=== PATIENT | female | born 1955 | race Hispanic/Latino ===

== ENCOUNTER 2018-05-11 11:40 | Emergency (ER) | payer MEDICARE ==
[~2018-05-11] VITALS: Ht 167.6 cm; Wt 68.0 kg
[2018-05-11 12:25] LABS: CLARITY,URINE SL CLOUDY (CLEAR); COLOR,URINE YELLOW (YELLOW)
[2018-05-11 12:26] LABS: BILIRUBIN,URINE NEGATIVE (NEGATIVE); KETONES,URINE NEGATIVE (NEGATIVE); LEUKOCYTE ESTERASE ,URINE 2+ (NEGATIVE); NITRITE,URINE NEGATIVE (NEGATIVE); PROTEIN,URINE DIPSTICK TRACE (NEGATIVE); URINE UROBILINOGEN 0.2 mg/dL (0.2 - 1)
[2018-05-11 12:31] LABS: BACTERIA,URINE RARE /HPF; EPITHELIAL CELLS,URINE RARE /LPF; WBC,URINE (MAN) >50 /HPF (0-5)
[2018-05-11] MEDS ORDERED: IBUPROFEN 200 MG TAB PO STA (12:42)
[2018-05-11] MEDS ORDERED: CEFTRIAXONE SOD 1 GM VIAL IM ONE (12:45)
[2018-05-11] MEDS ORDERED: ONDANSETRON HCL 4 MG ORAL DISINTEGRATING TAB PO ONE (12:45)
[2018-05-11] MEDS ORDERED: ACETAMINOPHEN 325 MG TAB PO ONE (12:45)
[2018-05-11 13:21] VITALS: BP 159/91
== END 2018-05-11 13:44 | disposition home or self-care (01) ==
LOC: ER 11:40 → EDBD 11:40 → ER 13:44
DX: R30.0 Dysuria (principal); R10.2 Pelvic and perineal pain; N30.91 Cystitis, unspecified with hematuria; I10 Essential (primary) hypertension; Z40.01 Encounter for prophylactic removal of breast
CPT/HCPCS: 81001; 99283; J0696; Q0162